=== PATIENT | female | born 1950 | race Caucasian/White ===

== ENCOUNTER → 2017-05-13 | Outpatient (CLI) | payer MEDICARE, OTHER ==
[~2017-05-13] MED LIST: ALBU90OI6 INH; ASPI325 PO; ASPI81CH; ATOR40TA PO; AZIT250 PO; Aspir 8181 MG PO; CEPH500 PO; CYCL10 PO; DIPH50 PO; DOCU100 PO; FLUT.05NI; GABA100; GLIP5 PO; HEPARIN LO IV; HYDACE10B PO; HYDACE7.5 PO; IBUP400 PO; IBUP600 PO; KETO10 PO; Kristalose20 GM PO; LISHYD2012 PO; LISHYD2025 PO; LOVA40 PO; METCAR500 PO; METF500 PO; METF500C PO; NAPR250 PO; OMEP20ER PO; OXYACE7.5T PO; PANT40 PO; PRED20 PO; PROCODE120 PO; PROM25 PO; Roxicodone5 MG PO; SULI150 PO; TRAM50 PO
== END ==
LOC: LAB 16:23
DX: L30.9 Dermatitis, unspecified (principal); L08.9 Local infection of the skin and subcutaneous tissue, unspecified
CPT/HCPCS: 87070; 87205; 87529

== ENCOUNTER → 2017-10-02 | Outpatient (CLI) | payer MEDICARE, OTHER ==
[2017-10-02 17:11] LABS: U Amphetamine Screen Not Detected; U Barbituate Screen Not Detected; U Benzodiazapine Screen Not Detected; U Buprenorphine Screen Not Detected; U Cannabinoids Screen Not Detected; U Cocaine Screen Not Detected; U Methadone Screen Not Detected; U Methamphetamine Screen Not Detected; U Opiates Screen DETECTED; U Oxycodone Screen Not Detected; U Phencyclidine Screen Not Detected; U Propoxyphene Screen Not Detected
== END | disposition home or self-care (01) ==
LOC: LAB 11:44 → LAB SHORT 11:44
PROVIDERS: Internal Medicine Hematology & Oncology
DX: Z51.81 Encounter for therapeutic drug level monitoring (principal); Z79.899 Other long term (current) drug therapy

== ENCOUNTER 2018-12-07 21:13 | Inpatient (IN) | payer MEDICARE, OTHER ==
[~2018-12-07] VITALS: Ht 107.9 cm; Wt 100.7 kg
[~2018-12-07 21:13] MED LIST changes: -GABA100; +GABA100 PO
[2018-12-07 21:45] LABS: BASOPHILS ABSOLUTE AUTO 0.08 K/mm3 (0.00-0.23); BASOPHILS PERCENT AUTO 1 % (0-2); EOSINOPHILS ABSOLUTE AUTO 0.13 K/mm3 (0.00-0.68); EOSINOPHILS PERCENT AUTO 1 % (0-6); Hematocrit 42.8 % (33.0-51.0); Hemoglobin 14.1 g/dL (11.5-16.0); IMMATURE GRAN ABSOLUTE AUTO 0.15 K/mm3 (0.00-0.10); IMMATURE GRAN PERCENT AUTO 1 % (0-1); LYMPHOCYTES ABSOLUTE AUTO 2.42 K/mm3 (0.84-5.20); LYMPHOCYTES PERCENT AUTO 15 % (21-46); MONOCYTES ABSOLUTE AUTO 0.71 K/mm3 (0.16-1.47); MONOCYTES PERCENT AUTO 4 % (4-13); Mean Corpuscular HGB Conc 32.9 g/dL (31.5-36.5); Mean Corpuscular Volume 88 fL (80-100); Mean Platelet Volume 10.4 fL (9.1-12.4); NEUTROPHILS PERCENT AUTO 79 % (41-73); Platelet Count 316 K/mm3 (150-400); RDW Coefficient Variation 13.8 % (11.7-14.2); RDW Standard Deviation 44.2 fL (35.1-46.3); Red Blood Cell Count 4.87 M/mm3 (3.80-5.20); White Blood Cell Count 16.39 K/mm3 (4.00-11.30)
[2018-12-07 22:04] LABS: Calcium, Blood 10.6 mg/dL (8.5-10.1); Creatinine, Blood 1.04 mg/dL (0.40-1.00); Potassium, Blood 4.2 mmol/L (3.5-5.5); Troponin I 0.071 ng/mL (0.000-0.040)
[2018-12-07] MEDS ORDERED: GLIP5 (23:26)
[2018-12-08 00:56] LABS: Albumin, Blood 4.2 g/dL (3.4-5.0)
--- NOTE | 2018-12-08 02:30 | NUR ---
PORT ACCESS FOR BLOOD CULTURES PORT ACCESSED PER PHYSICIAN REQUEST FOR BLOOD CULTURE SPECIMEN. HEPARIN LOCKED PER PROTOCOL AND SITE DEACCESSED.
[2018-12-08 02:49] LABS: BASOPHILS ABSOLUTE AUTO 0.06 K/mm3 (0.00-0.23); BASOPHILS PERCENT AUTO 0 % (0-2); EOSINOPHILS ABSOLUTE AUTO 0.05 K/mm3 (0.00-0.68); EOSINOPHILS PERCENT AUTO 0 % (0-6); Hematocrit 39.9 % (33.0-51.0); Hemoglobin 12.9 g/dL (11.5-16.0); IMMATURE GRAN ABSOLUTE AUTO 0.14 K/mm3 (0.00-0.10); IMMATURE GRAN PERCENT AUTO 1 % (0-1); LYMPHOCYTES ABSOLUTE AUTO 2.12 K/mm3 (0.84-5.20); LYMPHOCYTES PERCENT AUTO 13 % (21-46); MONOCYTES ABSOLUTE AUTO 0.79 K/mm3 (0.16-1.47); MONOCYTES PERCENT AUTO 5 % (4-13); Mean Corpuscular HGB 28.7 pg (26.0-34.0); Mean Corpuscular HGB Conc 32.3 g/dL (31.5-36.5); Mean Corpuscular Volume 89 fL (80-100); Mean Platelet Volume 10.4 fL (9.1-12.4); NEUTROPHILS ABSOLUTE AUTO 12.92 K/mm3 (1.96-9.15); NEUTROPHILS PERCENT AUTO 80 % (41-73); Platelet Count 269 K/mm3 (150-400); RDW Coefficient Variation 13.8 % (11.7-14.2); RDW Standard Deviation 44.6 fL (35.1-46.3); White Blood Cell Count 16.08 K/mm3 (4.00-11.30)
[2018-12-08 03:14] LABS: Source, Urine Clean Catch
[2018-12-08 03:16] LABS: Bilirubin, Urine Neg (Neg); Blood, Urine 1+ (Neg); Glucose Qualitative, Urine 1+ (Neg); Ketones, Urine 2+ (Neg); Leukocyte Esterase, Urine 1+ (Neg); Nitrite, Urine Neg (Neg); Protein, Urine 3+ (Neg); Specific Gravity, Urine 1.015 (1.003-1.022); Urobilinogen, Urine NORM (Normal)
[2018-12-08 03:18] LABS: Appearance, Urine Clear (Clear); Color, Urine Yellow (P-Yellow)
[2018-12-08 03:24] LABS: Bacteria Few /hpf; Red Blood Cells, Urine 0-2 /hpf (0-2); Squamous Epithelial Cells Rare /hpf (Few)
[2018-12-08 03:24] LABS: Albumin, Blood 3.9 g/dL (3.4-5.0); Bilirubin, Total 0.4 mg/dL (0.1-1.0); Calcium, Blood 9.8 mg/dL (8.5-10.1); Globulin, Blood 3.8 g/dL (2.2-4.0); Potassium, Blood 4.3 mmol/L (3.5-5.5); Total Protein, Blood 7.7 g/dL (6.4-8.2)
--- NOTE | 2018-12-08 06:26 | NUR ---
Arrival Pt arrived to PCU room 11 vis bed from ED with ED RN at bedside. Pt breathing easy and unlabored on RA at time of arrival, c/o 8/10 headache, denies chest pain, c/o 4/10 chest pressure. Pt states chest pressure has been constant and unchanging. Pt with NSR on tele. See admission assessment for detailed assessment. Will continue to monitor.
--- NOTE | 2018-12-08 06:30 | NUR ---
Shift Summary Pt with no acute changes this shift. after admission completed, pt sleeping undisturbed. VSS. No acute changes to tele. No further complaints of c/p or pressure. Headache resolved with ordered pain medications. Call light in reach, pt able to make needs known. Will continue to monitor and provide care until report off to day shift RN.
--- NOTE | 2018-12-08 08:34 | NUR ---
AM NOTE. ASSUMED CARE OF PT APROX 0700 PT IS A&Ox4 AND SBA/IND IN THE ROOM. PT WAS ADMITTED FOR HEAD ACHE AND HYPERTENSIVE URGENCY. PT DENIES HEADACHE AT THIS TIME. PT'S BP 144/76. NO EDEMA NOTED ON ASSESSMENT, PT HAS LYMPHEDEMA TO HER RUE. L/S CLEAR. BT PRESENT AND NORMOACTIVE, ABD IS SOFT NONTENDER TO PALP. PT IS IN NSR IN THE 80'S. WILL CONTINUE TO MONITOR.
--- NOTE | 2018-12-08 11:29 | NUR ---
echocardiogram complete
[2018-12-08 18:32] LABS: C-REACTIVE PROTEIN, EXT RANGE 0.977 mg/dL (0.000-0.300); Uric Acid, Blood 7.3 mg/dL (2.6-6.0)
--- NOTE | 2018-12-08 18:42 | NUR ---
SHIFT SUMMARY. NO ACUTE CHANGES NOTED THIS SHIFT. PT DENIES ANY CHEST PAIN/PRESSURE, N/V OR SOB. PT IS SCHEDULED TO HAVE CHE SCAN TOMORROW, PT IS TO BE NPO 4 HOURS PIOR TO SCAN, PT IS AWARE AND AGREEABLE TO THIS. PT HAS HAD VISTORS T/O THE DAY. PT'S VS STABLE, NO EVENTS NOTED ON TELE. CALL LIGHT IN REACH, WILL CONTINUE TO MONITOR UNTIL REPORT IS GIVEN TO ONCOMING RN.
[2018-12-08 19:38] LABS: Adenovirus Not Detected (NOT DETECT); Bordetella pertussis Not Detected (NOT DETECT); Chlamydophila pneumoniae Not Detected (NOT DETECT); Coronavirus 229E Not Detected (NOT DETECT); Coronavirus HKU1 Not Detected (NOT DETECT); Coronavirus NL63 Not Detected (NOT DETECT); Coronavirus OC43 Not Detected (NOT DETECT); Human Metapneumovirus Not Detected (NOT DETECT); Human Rhinovirus/Enterovirus Not Detected (NOT DETECT); Influenza A Not Detected (NOT DETECT); Influenza A/2009-H1 Not Detected (NOT DETECT); Influenza A/H1 Not Detected (NOT DETECT); Influenza A/H3 Not Detected (NOT DETECT); Influenza B Not Detected (NOT DETECT); Mycoplasma pneumoniae Not Detected (NOT DETECT); Parainfluenza Virus 1 Not Detected (NOT DETECT); Parainfluenza Virus 2 Not Detected (NOT DETECT); Parainfluenza Virus 3 Not Detected (NOT DETECT); Parainfluenza Virus 4 Not Detected (NOT DETECT); Respiratory Syncytial Virus Not Detected (NOT DETECT)
--- NOTE | 2018-12-08 22:56 | NUR ---
Assumed care of pt at appros 1900. Upon arrival, pt complaint of pain; medicated per orders. Pt denies chest pain, pressure, or SOB. Pt able to ambulate to bathroom with minimal assistance. Pt alert and oriented, follows directions, able to make needs known, uses call light appropriately. Pt to have stress test tomorrow, NPO per orders 4 hours prior to test. Pt aware and compliant with orders. See shift assessment for detailed assessment. Will continue to assess and provide care per orders
--- NOTE | 2018-12-09 00:21 | NUR ---
Report given to NATASHA Rhodes who assumes care.
[2018-12-09 04:12] LABS: BASOPHILS ABSOLUTE AUTO 0.08 K/mm3 (0.00-0.23); BASOPHILS PERCENT AUTO 1 % (0-2); EOSINOPHILS ABSOLUTE AUTO 0.38 K/mm3 (0.00-0.68); EOSINOPHILS PERCENT AUTO 3 % (0-6); Hematocrit 40.8 % (33.0-51.0); Hemoglobin 13.4 g/dL (11.5-16.0); IMMATURE GRAN ABSOLUTE AUTO 0.11 K/mm3 (0.00-0.10); IMMATURE GRAN PERCENT AUTO 1 % (0-1); LYMPHOCYTES PERCENT AUTO 26 % (21-46); MONOCYTES ABSOLUTE AUTO 1.05 K/mm3 (0.16-1.47); MONOCYTES PERCENT AUTO 8 % (4-13); Mean Corpuscular HGB 28.8 pg (26.0-34.0); Mean Corpuscular HGB Conc 32.8 g/dL (31.5-36.5); Mean Corpuscular Volume 88 fL (80-100); NEUTROPHILS ABSOLUTE AUTO 8.67 K/mm3 (1.96-9.15); NEUTROPHILS PERCENT AUTO 62 % (41-73); RDW Coefficient Variation 14.2 % (11.7-14.2); RDW Standard Deviation 44.8 fL (35.1-46.3); Red Blood Cell Count 4.65 M/mm3 (3.80-5.20); White Blood Cell Count 13.89 K/mm3 (4.00-11.30)
[2018-12-09 04:18] LABS: Mean Platelet Volume 10.5 fL (9.1-12.4); Platelet Count 247 K/mm3 (150-400)
[2018-12-09 04:34] LABS: Bun/Creatinine Ratio 20.5 (12.0-20.0); Calcium, Blood 9.6 mg/dL (8.5-10.1); Creatinine, Blood 1.17 mg/dL (0.40-1.00); Potassium, Blood 4.8 mmol/L (3.5-5.5)
--- NOTE | 2018-12-09 05:18 | NUR ---
SHIFT SUMMARY REPORT TAKEN ON PT FROM LISSA KAUR AT APPROX 0015. PT SLEEPING COMFORTABLY IN ROOM, SLEPT WELL T/O NIGHT. PT WOKE AT APPROX 0300 FOR PAIN MAEDS, BUT OTHERWISE DENIED NEEDS. DNIED ANY CP OR SOB. RESP EVEN UNLABORED ON RA W/ SATS >92%. PT INDEPENDENT IN ROOM TO RR. PT NPO OF 0400 FOR STRESS TEST THIS AM. PT COMPLIANT W/ CARE. DENIES OTHER NEEDS. CALL LIGHT IN REACH.
--- NOTE | 2018-12-09 07:45 | NUR ---
ASSUMED CARE OF PT THIS AM. PT. ALERT AND ORIENTED. INDEPENDENT IN ROOM. PT. ABLE TO EAT BREAFAST THIS AM, BUT WILL BE NPO AFTER FOR STRESS TEST. PT DENIES ANY CHEST PAIN OR PRESSURE THIS AM. PT. REPORTS CHRONIC PAIN THAT SHE TAKES NORCO Q4H FOR. VSS THIS AM. NADN. CALL LIGHT IN REACH.
--- NOTE | 2018-12-09 13:30 | NUR ---
PT REMAINS INDEPENDENT IN ROOM. FINISHED WITH INITAL PORTION OF STRESS TEST, SITTING UP EATING LUNCH. VSS. CALL LIGHT IN REACH.
--- NOTE | 2018-12-09 17:37 | NUR ---
SHIFT SUMMARY PT. REMAINS ALERT AND ORIENTED. NADN. INDEPENDENT IN ROOM T/O SHIFT. 2ND PORTION OF STRESS TOMORROW. CALL LIGHT IN REACH. NO ACUTE CHANGES T/O SHIFT. REPORT TO ONCOMING RN.
[2018-12-09 18:14] LABS: Source, Urine Catheter
[2018-12-09 18:24] LABS: Bilirubin, Urine Neg (Neg); Blood, Urine Neg (Neg); Glucose Qualitative, Urine Neg (Neg); Ketones, Urine Neg (Neg); Leukocyte Esterase, Urine 2+ (Neg); Nitrite, Urine Neg (Neg); Protein, Urine Neg (Neg); Urobilinogen, Urine NORM (Normal)
[2018-12-09 18:49] LABS: Appearance, Urine Clear (Clear); Color, Urine Yellow (P-Yellow)
[2018-12-09 18:50] LABS: Bacteria Rare /hpf; Red Blood Cells, Urine 0-2 /hpf (0-2); Squamous Epithelial Cells Mod /hpf (Few); White Blood Cells, Urine 0-2 /hpf (0-5)
--- NOTE | 2018-12-09 20:32 | NUR ---
Extenisve conversation with patient about her disease process and needs. Doctor Ribera has been managing most of her needs. 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 She expresses great stress at having a grandchild with cancer. We reviewed her care in detatil and her dosing of medications. She is supposed to take her neurontin TID but has missed the mid dosing. Reviewed the half life and dosing and how TID. She states medication works. Pt has strong anexiety componet. Review of diversiaon and switched the conversation to theraputic for her stress. Pt has sought treatment from [facility] for her pain and lympadema. will follow up with her for support and plan of care.
--- NOTE | 2018-12-09 21:22 | NUR ---
ASSUMED CARE OF PATIENT AT APPROXIMATELY 1905 FROM HEATHER [place] RN. PATIENT ALERT AND ORIENTED X4; INDEPENDENT IN ROOM TO BATHROOM. PATIENT REPORTS SHE KNOWS SHE IS FEELING BETTER BECAUSE SHE DOESNT WANT US TO DO ANYTHING FOR HER. PATIENT REPORTS CHRONIC PAIN THROUGHOUT HER BODY; REPORTS HEADACHE; BACK PAIN; RIGHT HIP PAIN; SHOULDER PAIN; MEDICATED PER EMAR; WENT FROM 8 TO 6; TOLERABLE FOR PATIENT. PATIENT REPORTS NUMBNESS IN TOES "FEELS LIKE SCALES ON MY TOES". PATIENT DENIES TINGLING, DIZZINESS AND NAUSEA. PATIENT HAD MEDIPORT; NOT ACCESSED; PIV S/L. FAMILY VISITED FOR A FEW MINUTES TONIGHT. PATIENT CURRENTLY RESTING IN BED; CALL LIGHT IN REACH; BED IN LOWEST POSISTION; WILL CONTINUE TO MONITOR AND ASSESS UNTIL END OF SHIFT.
--- NOTE | 2018-12-10 06:16 | NUR ---
NO ACUTE CHANGES TO REPORT. PATIENT SLEPT FOR ABOUT EIGHT HOURS. VSS. WILL CONTINUE TO MONITOR AND ASSESS UNTIL OF SHIFT. CALLED LAB ABOUT 0421 LABS STILL PENDING; CLOTTED; LAB WILL NEED TO REDRAW.
[2018-12-10 07:13] LABS: BASOPHILS ABSOLUTE AUTO 0.04 K/mm3 (0.00-0.23); BASOPHILS PERCENT AUTO 0 % (0-2); EOSINOPHILS ABSOLUTE AUTO 0.27 K/mm3 (0.00-0.68); EOSINOPHILS PERCENT AUTO 2 % (0-6); Hematocrit 38.4 % (33.0-51.0); Hemoglobin 12.2 g/dL (11.5-16.0); IMMATURE GRAN ABSOLUTE AUTO 0.11 K/mm3 (0.00-0.10); IMMATURE GRAN PERCENT AUTO 1 % (0-1); LYMPHOCYTES ABSOLUTE AUTO 3.02 K/mm3 (0.84-5.20); LYMPHOCYTES PERCENT AUTO 21 % (21-46); MONOCYTES ABSOLUTE AUTO 0.93 K/mm3 (0.16-1.47); MONOCYTES PERCENT AUTO 6 % (4-13); Mean Corpuscular HGB 28.7 pg (26.0-34.0); Mean Corpuscular HGB Conc 31.8 g/dL (31.5-36.5); Mean Corpuscular Volume 90 fL (80-100); Mean Platelet Volume 10.5 fL (9.1-12.4); NEUTROPHILS ABSOLUTE AUTO 10.18 K/mm3 (1.96-9.15); NEUTROPHILS PERCENT AUTO 70 % (41-73); Platelet Count 260 K/mm3 (150-400); RDW Standard Deviation 45.5 fL (35.1-46.3); Red Blood Cell Count 4.25 M/mm3 (3.80-5.20); White Blood Cell Count 14.55 K/mm3 (4.00-11.30)
--- NOTE | 2018-12-10 11:47 | NUR ---
Has been complaining of very dry mouth since yesterday evening. She thinks that it might be due to prednisone being started yesterday.
--- NOTE | 2018-12-10 14:53 | NUR ---
Anita complete: pt was given her lunch tray and a diet Pepsi for her headache.
--- NOTE | 2018-12-10 17:34 | NUR ---
Istrate called to inform him that the Lexiscan and myocardial perfusion study results have been read and are available.
[2018-12-10] MEDS ORDERED: Norco 10-325 T1 EACH PO (18:13)
[2018-12-10] MEDS ORDERED: ALLO100 PO (18:14)
[2018-12-10] MEDS ORDERED: MELA3 PO (18:15)
[2018-12-10] MEDS ORDERED: Lipitor20 MG PO (18:15)
[2018-12-10] MEDS ORDERED: ONDA4ODT MM (18:16)
[2018-12-10] MEDS ORDERED: NITR.4SL SL (18:16)
[2018-12-10] MEDS ORDERED: Lopressor 25 mg25 MG PO (18:16)
[2018-12-10] MEDS ORDERED: Prednisone10 MG PO (18:17)
== END 2018-12-10 18:48 | disposition home or self-care (01) | DRG 305 ==
LOC: ER 21:13 → PCU 21:14
PROVIDERS: Family Medicine; Nurse Practitioner Acute Care; Physician Assistant; ADMIT Hospitalist
DX: I16.0 Hypertensive urgency (principal); R65.10 Systemic inflammatory response syndrome (SIRS) of non-infectious origin without acute organ dysfunction; F11.20 Opioid dependence, uncomplicated; I24.8 Other forms of acute ischemic heart disease; E78.5 Hyperlipidemia, unspecified; K21.9 Gastro-esophageal reflux disease without esophagitis; G89.29 Other chronic pain; M54.9 Dorsalgia, unspecified; I35.0 Nonrheumatic aortic (valve) stenosis; N18.3 Chronic kidney disease, stage 3 (moderate); E83.52 Hypercalcemia; Z85.3 Personal history of malignant neoplasm of breast; Z85.528 Personal history of other malignant neoplasm of kidney; E78.00 Pure hypercholesterolemia, unspecified; E11.22 Type 2 diabetes mellitus with diabetic chronic kidney disease; E11.42 Type 2 diabetes mellitus with diabetic polyneuropathy; Z79.82 Long term (current) use of aspirin; Z79.84 Long term (current) use of oral hypoglycemic drugs; Z90.5 Acquired absence of kidney; I12.9 Hypertensive chronic kidney disease with stage 1 through stage 4 chronic kidney disease, or unspecified chronic kidney disease
CPT/HCPCS: 0099U; 36415; 70450; 71046; 78452; 80048; 80053; 81001; 82040; 82306; 82947; 83735; 83970; 84145; 84443; 84484; 84550; 85025; 85651; 86140; 87040; 87086; 93005; 93010; 93017; 93306; 96361; 96365; 96372; 96375; 96376; 99285-25; A9270-GY; A9500; G0378; J1642; J1650; J2405; J2785; J3475; J7030; J7512

== ENCOUNTER 2019-01-12 17:57 | Emergency (ER) | payer MEDICARE, OTHER ==
[~2019-01-12] VITALS: Ht 167.6 cm; Wt 102.1 kg
[~2019-01-12 17:57] MED LIST changes: +ALLO100 PO; +GLIP5; +Lipitor20 MG PO; +Lopressor 25 mg25 MG PO; +MELA3 PO; +NITR.4SL SL; +Norco 10-325 T1 EACH PO; +ONDA4ODT MM; +Prednisone10 MG PO
[2019-01-12 18:26] LABS: BASOPHILS ABSOLUTE AUTO 0.08 K/mm3 (0.00-0.23); BASOPHILS PERCENT AUTO 1 % (0-2); EOSINOPHILS ABSOLUTE AUTO 0.16 K/mm3 (0.00-0.68); EOSINOPHILS PERCENT AUTO 2 % (0-6); Hematocrit 40.7 % (33.0-51.0); Hemoglobin 13.1 g/dL (11.5-16.0); IMMATURE GRAN ABSOLUTE AUTO 0.06 K/mm3 (0.00-0.10); IMMATURE GRAN PERCENT AUTO 1 % (0-1); LYMPHOCYTES PERCENT AUTO 22 % (21-46); MONOCYTES ABSOLUTE AUTO 0.61 K/mm3 (0.16-1.47); MONOCYTES PERCENT AUTO 6 % (4-13); Mean Corpuscular HGB 29.4 pg (26.0-34.0); Mean Corpuscular HGB Conc 32.2 g/dL (31.5-36.5); Mean Corpuscular Volume 91 fL (80-100); Mean Platelet Volume 10.2 fL (9.1-12.4); NEUTROPHILS ABSOLUTE AUTO 7.32 K/mm3 (1.96-9.15); NEUTROPHILS PERCENT AUTO 70 % (41-73); Platelet Count 273 K/mm3 (150-400); RDW Coefficient Variation 13.6 % (11.7-14.2); RDW Standard Deviation 45.9 fL (35.1-46.3); Red Blood Cell Count 4.46 M/mm3 (3.80-5.20); White Blood Cell Count 10.53 K/mm3 (4.00-11.30)
[2019-01-12 18:45] LABS: Magnesium, Blood 1.7 mg/dL (1.6-2.4); Troponin I <0.015 ng/mL (0.000-0.040)
[2019-01-12 19:26] LABS: Alanine Aminotransfer (ALT/SGP 42 U/L (12-78); Albumin, Blood 3.7 g/dL (3.4-5.0); Alk Phos 58 U/L (50-136); Anion Gap 6 mmol/L (6-16); Aspartate Aminotrans (AST/SGOT 25 U/L (12-37); Bilirubin, Total 0.2 mg/dL (0.1-1.0); Blood Urea Nitrogen 20 mg/dL (8-24); Bun/Creatinine Ratio 18.2 (12.0-20.0); CO2, Blood 24 mmol/L (21-32); Calcium, Blood 9.3 mg/dL (8.5-10.1); Chloride, Blood 104 mmol/L (98-108); Globulin, Blood 3.8 g/dL (2.2-4.0); Glomerular Filtration Rate 53 (60-); Glucose, Blood 190 mg/dL (70-99); Potassium, Blood 4.6 mmol/L (3.5-5.5); Sodium, Blood 134 mmol/L (136-145); Total Protein, Blood 7.5 g/dL (6.4-8.2)
[2019-01-12 20:36] LABS: Source, Urine Clean Catch
[2019-01-12 20:41] LABS: Bilirubin, Urine Neg (Neg); Blood, Urine Neg (Neg); Glucose Qualitative, Urine 1+ (Neg); Ketones, Urine Neg (Neg); Leukocyte Esterase, Urine 2+ (Neg); Nitrite, Urine Neg (Neg); Protein, Urine Neg (Neg); Specific Gravity, Urine 1.005 (1.003-1.022); Urobilinogen, Urine NORM (Normal)
[2019-01-12 20:46] LABS: Appearance, Urine Clear (Clear); Color, Urine Pale Yellow (P-Yellow)
[2019-01-12 20:48] LABS: Bacteria Rare /hpf; Red Blood Cells, Urine 0-2 /hpf (0-2); Squamous Epithelial Cells Few /hpf (Few)
[2019-01-12 20:49] LABS: Transitional Epithelial Cells Few /hpf (0-Rare)
[2019-01-12] MEDS ORDERED: ALLO100 PO (21:58)
[2019-01-12] MEDS ORDERED: Lopressor 25 mg25 MG PO (21:58)
== END 2019-01-12 22:23 | disposition home or self-care (01) ==
LOC: ER 17:57
PROVIDERS: Physician Assistant
DX: I10 Essential (primary) hypertension (principal); Z88.0 Allergy status to penicillin; Z91.013 Allergy to seafood; Z88.5 Allergy status to narcotic agent; Z88.8 Allergy status to other drugs, medicaments and biological substances; Z79.899 Other long term (current) drug therapy; Z79.84 Long term (current) use of oral hypoglycemic drugs; Z79.82 Long term (current) use of aspirin; Z79.52 Long term (current) use of systemic steroids; Z85.3 Personal history of malignant neoplasm of breast; Z87.891 Personal history of nicotine dependence
CPT/HCPCS: 36415; 71046; 80053; 81001; 83735; 84484; 85025; 87086; 93005; 93010; 99284-25

== ENCOUNTER → 2019-11-09 | Outpatient (CLI) | payer MEDICARE, OTHER ==
[~2019-11-09] MED LIST changes: +PREG100 PO
[2019-11-09 13:05] LABS: Creatinine Urine 39.2 mg/dL (27.00-270.00); Microalbumin, Urine Quant. 5.31 mg/L (0.000-20.000); Protein, Urine Quantitative 6.5 mg/dL (0.0-11.9)
== END | disposition home or self-care (01) ==
LOC: LAB SHORT 11:26 → LAB 11:26 → LAB FUT 11-04 12:25
PROVIDERS: Internal Medicine Nephrology
DX: N18.3 Chronic kidney disease, stage 3 (moderate) (principal); D63.1 Anemia in chronic kidney disease; N25.81 Secondary hyperparathyroidism of renal origin; D50.9 Iron deficiency anemia, unspecified; E78.00 Pure hypercholesterolemia, unspecified; E55.9 Vitamin D deficiency, unspecified; D51.8 Other vitamin B12 deficiency anemias; D52.8 Other folate deficiency anemias; R76.9 Abnormal immunological finding in serum, unspecified; R94.5 Abnormal results of liver function studies; R94.6 Abnormal results of thyroid function studies
CPT/HCPCS: 81050; 82043; 82570; 84156

== ENCOUNTER → 2020-06-21 | Outpatient (CLI) | payer MEDICARE, OTHER ==
[~2020-06-21] MED LIST changes: +CALC.25 PO; +FURO40 PO; +LISI20 PO; +METO25 PO; +METO25ER PO; +OYSTER SHELL 51 EACH PO; +PREG200 PO; +ROPI.25 PO
[2020-06-21 19:45] LABS: U Amphetamine Screen Not Detected; U Barbituate Screen Not Detected; U Methamphetamine Screen Not Detected; U Opiates Screen DETECTED
[2020-06-21 19:46] LABS: U Benzodiazapine Screen Not Detected; U Buprenorphine Screen Not Detected; U Cannabinoids Screen Not Detected; U Cocaine Screen Not Detected; U Methadone Screen Not Detected; U Oxycodone Screen Not Detected; U Phencyclidine Screen Not Detected; U Propoxyphene Screen Not Detected
== END | disposition home or self-care (01) ==
LOC: LAB 18:32 → LAB SHORT 18:32
PROVIDERS: Internal Medicine Hematology & Oncology
DX: Z51.81 Encounter for therapeutic drug level monitoring (principal); Z79.899 Other long term (current) drug therapy

== ENCOUNTER 2020-07-29 17:35 | Emergency (ER) | payer MEDICARE, OTHER ==
[~2020-07-29] VITALS: Ht 165.1 cm; Wt 107.0 kg
[~2020-07-29 17:35] MED LIST changes: -CALC.25 PO; -FURO40 PO; -LISI20 PO; -METO25 PO; -METO25ER PO; -OYSTER SHELL 51 EACH PO; -PREG200 PO; -ROPI.25 PO
[2020-07-29 18:20] LABS: BASOPHILS ABSOLUTE AUTO 0.06 K/mm3 (0.00-0.23); BASOPHILS PERCENT AUTO 1 % (0-2); EOSINOPHILS ABSOLUTE AUTO 0.25 K/mm3 (0.00-0.68); EOSINOPHILS PERCENT AUTO 3 % (0-6); Hematocrit 38.2 % (33.0-51.0); Hemoglobin 12.3 g/dL (11.5-16.0); IMMATURE GRAN ABSOLUTE AUTO 0.06 K/mm3 (0.00-0.10); IMMATURE GRAN PERCENT AUTO 1 % (0-1); LYMPHOCYTES ABSOLUTE AUTO 2.57 K/mm3 (0.84-5.20); LYMPHOCYTES PERCENT AUTO 26 % (21-46); MONOCYTES ABSOLUTE AUTO 0.69 K/mm3 (0.16-1.47); MONOCYTES PERCENT AUTO 7 % (4-13); Mean Corpuscular HGB 27.2 pg (26.0-34.0); Mean Corpuscular HGB Conc 32.2 g/dL (31.5-36.5); Mean Corpuscular Volume 84 fL (80-100); Mean Platelet Volume 11.6 fL (9.1-12.4); NEUTROPHILS ABSOLUTE AUTO 6.34 K/mm3 (1.96-9.15); NEUTROPHILS PERCENT AUTO 64 % (41-73); Platelet Count 243 K/mm3 (150-400); RDW Coefficient Variation 15.8 % (11.7-14.2); RDW Standard Deviation 48.7 fL (35.1-46.3); Red Blood Cell Count 4.53 M/mm3 (3.80-5.20); White Blood Cell Count 9.97 K/mm3 (4.00-11.30)
[2020-07-29 18:42] LABS: Alanine Aminotransfer (ALT/SGP 38 U/L (12-78); Albumin, Blood 3.7 g/dL (3.4-5.0); Albumin/Globulin Ratio 0.9 (0.8-1.8); Alk Phos 57 U/L (50-136); Anion Gap 6 mmol/L (6-16); Aspartate Aminotrans (AST/SGOT 28 U/L (12-37); Bilirubin, Total 0.3 mg/dL (0.1-1.0); Blood Urea Nitrogen 75 mg/dL (8-24); Bun/Creatinine Ratio 27.7 (12.0-20.0); CO2, Blood 28 mmol/L (21-32); Calcium, Blood 9.1 mg/dL (8.5-10.1); Chloride, Blood 98 mmol/L (98-108); Creatinine, Blood 2.71 mg/dL (0.40-1.00); Glomerular Filtration Rate 19 (60-); Glucose, Blood 107 mg/dL (70-99); Potassium, Blood 5.1 mmol/L (3.5-5.5); Sodium, Blood 132 mmol/L (136-145); Total Protein, Blood 7.7 g/dL (6.4-8.2); Troponin I <0.015 ng/mL (0.000-0.040)
[2020-07-29] MEDS ORDERED: ROPI.25 PO (20:13)
[2020-07-29] MEDS ORDERED: PREG200 PO (20:14)
[2020-07-29] MEDS ORDERED: CALC.25 PO (20:15)
[2020-07-29] MEDS ORDERED: OYSTER SHELL 51 EACH PO (20:15)
[2020-07-29] MEDS ORDERED: FURO40 PO ×2 (20:17→20:18)
== END 2020-07-29 22:13 | disposition home or self-care (01) ==
LOC: ER 17:35
PROVIDERS: Physician Assistant
DX: N17.9 Acute kidney failure, unspecified (principal); Z79.84 Long term (current) use of oral hypoglycemic drugs; Z79.899 Other long term (current) drug therapy; Z88.0 Allergy status to penicillin; Z91.030 Bee allergy status; Z88.5 Allergy status to narcotic agent; Z79.82 Long term (current) use of aspirin
CPT/HCPCS: 36415; 70450; 71045; 72125; 80053; 84484; 85025; 93005; 93010; 99285-25; A9270; J7120

== ENCOUNTER 2020-09-26 06:44 | Day surgery (SDC) | payer MEDICARE, OTHER ==
[~2020-09-26] VITALS: Ht 162.6 cm; Wt 111.1 kg
[~2020-09-26 06:44] MED LIST changes: +CALC.25 PO; +FURO40 PO; +LISI20 PO; +METO25 PO; +OYSTER SHELL 51 EACH PO; +PREG200 PO; +ROPI.25 PO
--- NOTE | 2020-09-26 14:47 | NUR ---
VERBAL ORDER TO USE MEDIPORT IN LEFT CHESTWALL PER DR HENRIQUEZ.
--- NOTE | 2020-09-26 19:58 | NUR ---
SHIFT SUMMARY PT HAS DONE WELL POST OP. EATING, DRINKING, VOIDING. WORKED W/ THERAPY. UP TO CHAIR. PAIN WELL CONTROLLED W/ PO.
--- NOTE | 2020-09-27 04:13 | NUR ---
SHIFT SUMMARY: PT POD#1 FOR A LT TKA. PT A&OX4. VS WNL. AQUACEL DRESSING C/D/I WITH POLAR PACK IN PLACE. PAIN BEING MANAGED WITH NORCO PER EMAR. PT ALSO GIVEN ONE DOSE OF IV DILAUDID THIS MORNING FOR SEVERE 9/10 PAIN. PT NOW REPORTING PAIN 6/10 WHICH IS TOLERABLE. PT AMBULATING TO BATHROOM WITH 1 MINIMAL ASSIST AND FWW+GB. PT ABLE TO TAKE A SHORT WALK IN THE HALLWAY PRIOR TO BED. PLAN FOR PHYSICAL THERAPY TODAY AND POSSIBLE DISCHARGE HOME.
[2020-09-27 04:26] LABS: BASOPHILS ABSOLUTE AUTO 0.08 K/mm3 (0.00-0.23); BASOPHILS PERCENT AUTO 1 % (0-2); EOSINOPHILS ABSOLUTE AUTO 0.06 K/mm3 (0.00-0.68); EOSINOPHILS PERCENT AUTO 0 % (0-6); Hematocrit 31.2 % (33.0-51.0); Hemoglobin 10.1 g/dL (11.5-16.0); IMMATURE GRAN PERCENT AUTO 1 % (0-1); LYMPHOCYTES ABSOLUTE AUTO 1.96 K/mm3 (0.84-5.20); LYMPHOCYTES PERCENT AUTO 13 % (21-46); MONOCYTES ABSOLUTE AUTO 1.09 K/mm3 (0.16-1.47); MONOCYTES PERCENT AUTO 8 % (4-13); Mean Corpuscular HGB 27.8 pg (26.0-34.0); Mean Corpuscular HGB Conc 32.4 g/dL (31.5-36.5); Mean Corpuscular Volume 86 fL (80-100); Mean Platelet Volume 10.8 fL (9.1-12.4); NEUTROPHILS ABSOLUTE AUTO 11.21 K/mm3 (1.96-9.15); NEUTROPHILS PERCENT AUTO 77 % (41-73); NRBC ABSOLUTE 0.02 K/mm3 (0.00-0.02); NRBC Auto 0.1 /100 WBC (0.0-0.2); Platelet Count 194 K/mm3 (150-400); RDW Coefficient Variation 16.6 % (11.7-14.2); RDW Standard Deviation 51.6 fL (35.1-46.3); Red Blood Cell Count 3.63 M/mm3 (3.80-5.20)
[2020-09-27 04:44] LABS: Bun/Creatinine Ratio 21.7 (12.0-20.0); Calcium, Blood 8.5 mg/dL (8.5-10.1); Creatinine, Blood 1.61 mg/dL (0.40-1.00); Potassium, Blood 4.5 mmol/L (3.5-5.5)
[2020-09-27] MEDS ORDERED: Aspir 8181 MG PO (08:43)
[2020-09-27] MEDS ORDERED: HYDACE10B PO (08:44)
--- NOTE | 2020-09-27 19:40 | NUR ---
SHIFT SUMMARY PT HAS STRUGGLED W/ PAIN MANAGEMENT. SHE DISCUSSED THIS W/ MD THIS AM. WAS UNABLE TO CLEAR THERAPY. DOES WELL AMBULATING SLOWLY BUT PAINFUL. EATING, DRINKING, VOIDING. SHELLY RUGGIERO.
--- NOTE | 2020-09-28 04:16 | NUR ---
SHIFT SUMMARY NO ACUTE CHANGES. PT REPORTS L KNEE PAIN LEVEL AT 7-9/10 T/O SHIFT. PAIN MANAGED WITH 0.5 DILAUDID AND 2 TAB 10MG NORCO EVERY 4H. PT AMBULATING IN THE BATHROOM W/ 1 SBA, FAIR TOLERANCE. SHE WILL WORK WITH THERAPIST AGAIN TODAY. VSS. ALTHOUGH SHE WAS DESATING AT 83-90 AT SLEEP. PT STATES SHE SNORES AND WAS ADVISE TO HAVE A SLEEP STUDY A YEAR AGO BUT NEVER FOLLOW THROUGH. I PUT PATIENT ON 2L O2 AT NIGHT FOR SLEEP, SATURATING OVER 90%. TOLERATING PO INTAKE DENIES NAUSEA AND VOMITING. VOIDING ADEQUATELY WITHOUT ANY COMPLAINTS. CALL LIGHT WITHIN REACH. WILL PROVIDE REPORT TO ONCOMING NURSE.
--- NOTE | 2020-09-28 11:30 | NUR ---
DISCHARGE PT A/O X4. POD #2 L TKA. PT WORKED WITH PHYSICAL THERAPY TODAY AND CLEARED THERAPY. USING FWW WELL. REPORTS NO QUESTIONS OR CONCERNS, STATES SHE IS COMFORTABLE GOING HOME. FAMILY AT BEDSIDE WITH THERPAY SESSION, REPORTS NO QUESTIONS. OUTPATIENT THERAPY ALREADY LINED UP PER PT. DC INSTRUCTIONS GIVEN TO PT AND FAMILY, BOTH REPORT NO QUESTIONS OR CONCERNS. SCRIPTS, WRITTEN INSTRUCTIONS, POLAR PACK, AND PERSONAL BELONGINGS SENT WITH PT. [facility] DEACCESSED WNL. PT DC'D AT 1115. GIVEN WHEELCHAIR RIDE OUT TO VEHICLE.
== END 2020-09-28 11:53 | disposition home or self-care (01) ==
LOC: ORSCMMR 06:44 → ORD 09:45 → ORSCMMR 09:45 → ORD 10:15 → SURS 12:10 → ORSCMMR 09-28 11:53 → SURS 09-28 11:53
PROVIDERS: Orthopaedic Surgery
PROC: 0SRD0JA Replacement of Left Knee Joint with Synthetic Substitute, Uncemented, Open Approach (ICD-10-PCS; principal; 2020-09-26 08:00)
PROC: 8E0Y0CZ Robotic Assisted Procedure of Lower Extremity, Open Approach (ICD-10-PCS; principal; 2020-09-26 08:00)
DX: M17.12 Unilateral primary osteoarthritis, left knee (principal); E11.9 Type 2 diabetes mellitus without complications; I10 Essential (primary) hypertension; E66.01 Morbid (severe) obesity due to excess calories; Z68.41 Body mass index [BMI] 40.0-44.9, adult; Z79.84 Long term (current) use of oral hypoglycemic drugs; Z79.899 Other long term (current) drug therapy
CPT/HCPCS: 27447; S2900; 36415; 73560-LT; 80048; 82947; 85025; 97110; 97116; 97162; 97530; A9270; C1776; J0171; J0735; J1100; J1170; J1642; J1885; J2250; J2405; J2704; J2795; J3010; J7120

== ENCOUNTER 2020-10-06 15:32 | Emergency (ER) | payer MEDICARE, OTHER ==
[~2020-10-06] VITALS: Ht 162.6 cm; Wt 106.6 kg
[2020-10-06 16:08] LABS: BASOPHILS PERCENT AUTO 1 % (0-2); EOSINOPHILS ABSOLUTE AUTO 0.66 K/mm3 (0.00-0.68); EOSINOPHILS PERCENT AUTO 6 % (0-6); Hematocrit 35.5 % (33.0-51.0); Hemoglobin 11.3 g/dL (11.5-16.0); IMMATURE GRAN ABSOLUTE AUTO 0.21 K/mm3 (0.00-0.10); IMMATURE GRAN PERCENT AUTO 2 % (0-1); LYMPHOCYTES ABSOLUTE AUTO 2.58 K/mm3 (0.84-5.20); LYMPHOCYTES PERCENT AUTO 23 % (21-46); MONOCYTES ABSOLUTE AUTO 0.83 K/mm3 (0.16-1.47); MONOCYTES PERCENT AUTO 7 % (4-13); Mean Corpuscular HGB 27.6 pg (26.0-34.0); Mean Corpuscular HGB Conc 31.8 g/dL (31.5-36.5); Mean Corpuscular Volume 87 fL (80-100); Mean Platelet Volume 9.6 fL (9.1-12.4); NEUTROPHILS ABSOLUTE AUTO 6.99 K/mm3 (1.96-9.15); NEUTROPHILS PERCENT AUTO 62 % (41-73); Platelet Count 467 K/mm3 (150-400); RDW Coefficient Variation 16.2 % (11.7-14.2); RDW Standard Deviation 51.4 fL (35.1-46.3); Red Blood Cell Count 4.09 M/mm3 (3.80-5.20); White Blood Cell Count 11.37 K/mm3 (4.00-11.30)
[2020-10-06] MEDS ORDERED: METO25ER PO (16:11)
[2020-10-06 16:26] LABS: International Normalized Ratio 1.1; Prothrombin Time Results 11.8 Sec (9.7-11.5)
[2020-10-06 16:29] LABS: Alanine Aminotransfer (ALT/SGP 30 U/L (12-78); Albumin, Blood 3.5 g/dL (3.4-5.0); Albumin/Globulin Ratio 0.8 (0.8-1.8); Alk Phos 68 U/L (50-136); Anion Gap 8 mmol/L (6-16); Aspartate Aminotrans (AST/SGOT 21 U/L (12-37); Bilirubin, Total 0.2 mg/dL (0.1-1.0); Blood Urea Nitrogen 33 mg/dL (8-24); Bun/Creatinine Ratio 17.1 (12.0-20.0); CO2, Blood 25 mmol/L (21-32); Calcium, Blood 9.2 mg/dL (8.5-10.1); Chloride, Blood 101 mmol/L (98-108); Creatinine, Blood 1.93 mg/dL (0.40-1.00); Globulin, Blood 4.3 g/dL (2.2-4.0); Glomerular Filtration Rate 27 (60-); Glucose, Blood 132 mg/dL (70-99); Potassium, Blood 4.7 mmol/L (3.5-5.5); Sodium, Blood 134 mmol/L (136-145); Total Protein, Blood 7.8 g/dL (6.4-8.2); Troponin I <0.015 ng/mL (0.000-0.040)
== END 2020-10-06 18:46 | disposition home or self-care (01) ==
LOC: ER 15:32
PROVIDERS: Physician Assistant
DX: I95.9 Hypotension, unspecified (principal); R06.02 Shortness of breath; K21.9 Gastro-esophageal reflux disease without esophagitis; E11.40 Type 2 diabetes mellitus with diabetic neuropathy, unspecified; Z79.84 Long term (current) use of oral hypoglycemic drugs; Z79.899 Other long term (current) drug therapy; Z79.82 Long term (current) use of aspirin; Z88.0 Allergy status to penicillin; Z88.5 Allergy status to narcotic agent; Z91.030 Bee allergy status
CPT/HCPCS: 36415; 71260; 80053; 83880; 84484; 85025; 85610; 85730; 93005; 93010; 96360; 96361; 99285-25; J7030; Q9967

== ENCOUNTER 2020-12-13 21:32 | Emergency (ER) | payer MEDICARE, OTHER ==
[~2020-12-13] VITALS: Ht 170.2 cm; Wt 127.0 kg
[~2020-12-13 21:32] MED LIST changes: +METO25ER PO
[2020-12-13 22:30] LABS: BASOPHILS ABSOLUTE AUTO 0.01 K/mm3 (0.00-0.23); BASOPHILS PERCENT AUTO 0 % (0-2); EOSINOPHILS PERCENT AUTO 0 % (0-6); Hematocrit 39.4 % (33.0-51.0); Hemoglobin 12.3 g/dL (11.5-16.0); IMMATURE GRAN ABSOLUTE AUTO 0.06 K/mm3 (0.00-0.10); IMMATURE GRAN PERCENT AUTO 1 % (0-1); LYMPHOCYTES ABSOLUTE AUTO 0.52 K/mm3 (0.84-5.20); LYMPHOCYTES PERCENT AUTO 7 % (21-46); MONOCYTES ABSOLUTE AUTO 0.49 K/mm3 (0.16-1.47); MONOCYTES PERCENT AUTO 7 % (4-13); Mean Corpuscular HGB 26.6 pg (26.0-34.0); Mean Corpuscular HGB Conc 31.2 g/dL (31.5-36.5); Mean Corpuscular Volume 85 fL (80-100); Mean Platelet Volume 10.7 fL (9.1-12.4); NEUTROPHILS ABSOLUTE AUTO 6.09 K/mm3 (1.96-9.15); NEUTROPHILS PERCENT AUTO 85 % (41-73); Platelet Count 162 K/mm3 (150-400); RDW Coefficient Variation 15.2 % (11.7-14.2); RDW Standard Deviation 47.7 fL (35.1-46.3); Red Blood Cell Count 4.63 M/mm3 (3.80-5.20); White Blood Cell Count 7.17 K/mm3 (4.00-11.30)
[2020-12-13 22:48] LABS: Albumin, Blood 3.1 g/dL (3.4-5.0); Albumin/Globulin Ratio 0.7 (0.8-1.8); Bilirubin, Total 0.3 mg/dL (0.1-1.0); Bun/Creatinine Ratio 20.3 (12.0-20.0); Calcium, Blood 8.6 mg/dL (8.5-10.1); Creatinine, Blood 1.33 mg/dL (0.40-1.00); Globulin, Blood 4.2 g/dL (2.2-4.0); Potassium, Blood 4.8 mmol/L (3.5-5.5); Total Protein, Blood 7.3 g/dL (6.4-8.2)
[2020-12-13 23:05] LABS: Source, Urine Voided
[2020-12-13 23:07] LABS: Bilirubin, Urine Neg (Neg); Blood, Urine 4+ (Neg); Glucose Qualitative, Urine Neg (Neg); Ketones, Urine 2+ (Neg); Leukocyte Esterase, Urine Neg (Neg); Nitrite, Urine Neg (Neg); Protein, Urine 3+ (Neg); Urobilinogen, Urine NORM (Normal)
[2020-12-13 23:08] LABS: Appearance, Urine Clear (Clear); Color, Urine Yellow (P-Yellow)
[2020-12-13 23:13] LABS: Bacteria Rare /hpf; Squamous Epithelial Cells Few /hpf (Few); White Blood Cells, Urine Not Seen /hpf (0-5)
== END 2020-12-14 01:30 | disposition home or self-care (01) ==
LOC: ER 21:32
PROVIDERS: Emergency Medicine; Student in an Organized Health Care Education/Training Program
DX: U07.1 COVID-19 (principal); I10 Essential (primary) hypertension; K21.9 Gastro-esophageal reflux disease without esophagitis; E11.9 Type 2 diabetes mellitus without complications; J45.909 Unspecified asthma, uncomplicated; Z88.0 Allergy status to penicillin; Z88.5 Allergy status to narcotic agent; Z79.899 Other long term (current) drug therapy; Z79.84 Long term (current) use of oral hypoglycemic drugs; Z91.038 Other insect allergy status; Z79.82 Long term (current) use of aspirin; Z85.3 Personal history of malignant neoplasm of breast; Z85.528 Personal history of other malignant neoplasm of kidney
CPT/HCPCS: 36415; 71045; 80053; 81001; 85025; 93005; 93010; 99284-25; A9270; J7030; P9612

== ENCOUNTER 2020-12-16 20:41 | Inpatient (IN) | payer MEDICARE, OTHER ==
[~2020-12-16] VITALS: Ht 165.1 cm; Wt 108.1 kg
[2020-12-16 21:15] LABS: BASOPHILS PERCENT AUTO 0 % (0-2); EOSINOPHILS PERCENT AUTO 0 % (0-6); Hematocrit 38.1 % (33.0-51.0); Hemoglobin 11.9 g/dL (11.5-16.0); IMMATURE GRAN ABSOLUTE AUTO 0.02 K/mm3 (0.00-0.10); IMMATURE GRAN PERCENT AUTO 1 % (0-1); LYMPHOCYTES ABSOLUTE AUTO 0.26 K/mm3 (0.84-5.20); LYMPHOCYTES PERCENT AUTO 6 % (21-46); MONOCYTES ABSOLUTE AUTO 0.22 K/mm3 (0.16-1.47); MONOCYTES PERCENT AUTO 5 % (4-13); Mean Corpuscular HGB 26.3 pg (26.0-34.0); Mean Corpuscular HGB Conc 31.2 g/dL (31.5-36.5); Mean Corpuscular Volume 84 fL (80-100); Mean Platelet Volume 9.9 fL (9.1-12.4); NEUTROPHILS ABSOLUTE AUTO 3.93 K/mm3 (1.96-9.15); NEUTROPHILS PERCENT AUTO 89 % (41-73); Platelet Count 186 K/mm3 (150-400); RDW Standard Deviation 46.1 fL (35.1-46.3); Red Blood Cell Count 4.52 M/mm3 (3.80-5.20); White Blood Cell Count 4.43 K/mm3 (4.00-11.30)
[2020-12-16 21:36] LABS: Alanine Aminotransfer (ALT/SGP 39 U/L (12-78); Albumin, Blood 2.7 g/dL (3.4-5.0); Albumin/Globulin Ratio 0.6 (0.8-1.8); Alk Phos 48 U/L (50-136); Anion Gap 9 mmol/L (6-16); Aspartate Aminotrans (AST/SGOT 50 U/L (12-37); Bilirubin, Total 0.2 mg/dL (0.1-1.0); Blood Urea Nitrogen 37 mg/dL (8-24); Bun/Creatinine Ratio 22.8 (12.0-20.0); CO2, Blood 20 mmol/L (21-32); Chloride, Blood 102 mmol/L (98-108); Creatinine, Blood 1.62 mg/dL (0.40-1.00); Globulin, Blood 4.2 g/dL (2.2-4.0); Glomerular Filtration Rate 32 (60-); Glucose, Blood 147 mg/dL (70-99); Potassium, Blood 4.3 mmol/L (3.5-5.5); Sodium, Blood 131 mmol/L (136-145); Total Protein, Blood 6.9 g/dL (6.4-8.2); Troponin I <0.015 ng/mL (0.000-0.040)
[2020-12-17 06:49] LABS: Hematocrit 36.9 % (33.0-51.0); Hemoglobin 11.6 g/dL (11.5-16.0); Mean Corpuscular HGB 26.7 pg (26.0-34.0); Mean Corpuscular HGB Conc 31.4 g/dL (31.5-36.5); Mean Corpuscular Volume 85 fL (80-100); Mean Platelet Volume 9.8 fL (9.1-12.4); Platelet Count 175 K/mm3 (150-400); RDW Coefficient Variation 14.9 % (11.7-14.2); RDW Standard Deviation 46.2 fL (35.1-46.3); Red Blood Cell Count 4.35 M/mm3 (3.80-5.20); White Blood Cell Count 4.45 K/mm3 (4.00-11.30)
[2020-12-17 07:13] LABS: Albumin, Blood 2.6 g/dL (3.4-5.0); Albumin/Globulin Ratio 0.6 (0.8-1.8); Bilirubin, Total 0.2 mg/dL (0.1-1.0); Bun/Creatinine Ratio 20.6 (12.0-20.0); Creatinine, Blood 1.7 mg/dL (0.40-1.00); Globulin, Blood 4.2 g/dL (2.2-4.0); Potassium, Blood 5.1 mmol/L (3.5-5.5); Total Protein, Blood 6.8 g/dL (6.4-8.2)
[2020-12-17 08:17] LABS: BAND PERCENT MAN 4 % (0-8); BASOPHILS PERCENT MAN 0 % (0-2); EOSINOPHILS PERCENT MAN 0 % (0-6); LYMPHOCYTES ABSOLUTE MAN 0.17 K/mm3 (0.84-5.20); LYMPHOCYTES PERCENT MAN 4 % (21-46); MONOCYTES ABSOLUTE MAN 0.13 K/mm3 (0.16-1.47); MONOCYTES PERCENT MAN 3 % (4-13); MYELOCYTE ABSOLUTE MAN 0.04 K/mm3 (0.00-0.00); MYELOCYTE PERCENT MAN 1 % (0-0); NEUTROPHILS ABSOLUTE MAN 4.09 K/mm3 (1.96-9.15); SEG NEUTROPHILS PERCENT MAN 88 % (41-73); TOTAL CELLS COUNTED 100
--- NOTE | 2020-12-17 17:26 | NUR ---
SHIFT SUMMARY ED ADMIT THIS AFTERNOON. PATIENT SETTLED INTO ROOM. PATIENT MAINTAINING OXYGEN SATURATION ABOVE 92% ON 10L/XYMIZER. UP SBA TO BSC. MEDIPORT ACCEDD IN ED. PATIENT DENIES NAUSEA, MEDICATED X1 FOR PAIN IN ED. DENIES PAIN AT THIS TIME.
[2020-12-18 05:59] LABS: Hematocrit 39.3 % (33.0-51.0); Hemoglobin 12.3 g/dL (11.5-16.0); Mean Corpuscular HGB 26.3 pg (26.0-34.0); Mean Corpuscular HGB Conc 31.3 g/dL (31.5-36.5); Mean Corpuscular Volume 84 fL (80-100); Mean Platelet Volume 10.1 fL (9.1-12.4); Platelet Count 216 K/mm3 (150-400); RDW Coefficient Variation 14.9 % (11.7-14.2); RDW Standard Deviation 46.1 fL (35.1-46.3); Red Blood Cell Count 4.67 M/mm3 (3.80-5.20); White Blood Cell Count 4.64 K/mm3 (4.00-11.30)
[2020-12-18 06:29] LABS: Albumin, Blood 2.6 g/dL (3.4-5.0); Anion Gap 9 mmol/L (6-16); Blood Urea Nitrogen 35 mg/dL (8-24); Bun/Creatinine Ratio 25.9 (12.0-20.0); CO2, Blood 19 mmol/L (21-32); Chloride, Blood 108 mmol/L (98-108); Creatinine, Blood 1.35 mg/dL (0.40-1.00); Glomerular Filtration Rate 39 (60-); Glucose, Blood 140 mg/dL (70-99); Phosphorus, Blood 2.9 mg/dL (2.5-4.9); Potassium, Blood 4.9 mmol/L (3.5-5.5); Sodium, Blood 136 mmol/L (136-145)
[2020-12-18 11:26] LABS: Source, Urine Clean Catch
[2020-12-18 11:52] LABS: Bilirubin, Urine Neg (Neg); Blood, Urine 2+ (Neg); Glucose Qualitative, Urine 2+ (Neg); Ketones, Urine Neg (Neg); Leukocyte Esterase, Urine 1+ (Neg); Nitrite, Urine Neg (Neg); Protein, Urine 2+ (Neg); Urobilinogen, Urine NORM (Normal)
[2020-12-18 11:54] LABS: Appearance, Urine Clear (Clear); Color, Urine Yellow (P-Yellow)
[2020-12-18 11:55] LABS: Bacteria Many /hpf; Squamous Epithelial Cells Rare /hpf (Few); Transitional Epithelial Cells Few /hpf (0-Rare)
[2020-12-19 05:45] LABS: BASOPHILS ABSOLUTE AUTO 0.01 K/mm3 (0.00-0.23); BASOPHILS PERCENT AUTO 0 % (0-2); EOSINOPHILS PERCENT AUTO 0 % (0-6); Hematocrit 39.6 % (33.0-51.0); Hemoglobin 12.5 g/dL (11.5-16.0); IMMATURE GRAN ABSOLUTE AUTO 0.05 K/mm3 (0.00-0.10); IMMATURE GRAN PERCENT AUTO 1 % (0-1); LYMPHOCYTES PERCENT AUTO 10 % (21-46); MONOCYTES ABSOLUTE AUTO 0.39 K/mm3 (0.16-1.47); MONOCYTES PERCENT AUTO 9 % (4-13); Mean Corpuscular HGB 26.6 pg (26.0-34.0); Mean Corpuscular HGB Conc 31.6 g/dL (31.5-36.5); Mean Corpuscular Volume 84 fL (80-100); Mean Platelet Volume 9.8 fL (9.1-12.4); NEUTROPHILS ABSOLUTE AUTO 3.35 K/mm3 (1.96-9.15); NEUTROPHILS PERCENT AUTO 80 % (41-73); Platelet Count 259 K/mm3 (150-400); RDW Coefficient Variation 14.8 % (11.7-14.2); RDW Standard Deviation 45.5 fL (35.1-46.3)
[2020-12-19 06:09] LABS: Albumin, Blood 2.5 g/dL (3.4-5.0); Albumin/Globulin Ratio 0.6 (0.8-1.8); Bilirubin, Total 0.2 mg/dL (0.1-1.0); Bun/Creatinine Ratio 29.6 (12.0-20.0); C-REACTIVE PROTEIN, EXT RANGE 9.16 mg/dL (0.000-0.300); Calcium, Blood 8.3 mg/dL (8.5-10.1); Creatinine, Blood 1.42 mg/dL (0.40-1.00); Globulin, Blood 4.4 g/dL (2.2-4.0); Magnesium, Blood 1.7 mg/dL (1.6-2.4); Potassium, Blood 5.4 mmol/L (3.5-5.5); Thyroid Stimulating Hormone 0.204 uIU/mL (0.360-4.800); Total Protein, Blood 6.9 g/dL (6.4-8.2)
--- NOTE | 2020-12-19 10:41 | NUR ---
11 BEATS OF ELEVATED TACHYCARDIA, POSSIBLY SVT OR VT, AT 0948. DR. FUNES NOTIFIED BY TELEPHONE @ 9565. ORDERS RECIEVED.
--- NOTE | 2020-12-19 13:06 | NUR ---
ASSISTED PT TO BSC. ALSO CHANGED GOWN AND STRAIGHTENED BEDDING
--- NOTE | 2020-12-20 03:48 | NUR ---
70 YEAR OLD pt WITH COVID 19 & HX OF CANCER IN REMISSION X 7 YEARS? CONTINUES TO REQUIRE OXYGEN 6 TO 10 L OXYMIZER TO MAINTAIN SATS AT 90% OR GREATER. DOES DESAT TO 82 WITH ACTIVITY & SLOW RECOVERY. SHE APPEARS OLDER THAN ACTUAL AGE. dIABETIC WITH BGS LESS THAN 250. . IN SPECIAL DROPLET CONTACT ISOLATION FOR COVID 19.
[2020-12-20 06:13] LABS: BASOPHILS ABSOLUTE AUTO 0.01 K/mm3 (0.00-0.23); BASOPHILS PERCENT AUTO 0 % (0-2); EOSINOPHILS PERCENT AUTO 0 % (0-6); Hematocrit 38.6 % (33.0-51.0); Hemoglobin 12.3 g/dL (11.5-16.0); IMMATURE GRAN ABSOLUTE AUTO 0.08 K/mm3 (0.00-0.10); IMMATURE GRAN PERCENT AUTO 2 % (0-1); LYMPHOCYTES ABSOLUTE AUTO 0.44 K/mm3 (0.84-5.20); LYMPHOCYTES PERCENT AUTO 10 % (21-46); MONOCYTES ABSOLUTE AUTO 0.37 K/mm3 (0.16-1.47); MONOCYTES PERCENT AUTO 8 % (4-13); Mean Corpuscular HGB 26.5 pg (26.0-34.0); Mean Corpuscular HGB Conc 31.9 g/dL (31.5-36.5); Mean Corpuscular Volume 83 fL (80-100); Mean Platelet Volume 9.9 fL (9.1-12.4); NEUTROPHILS ABSOLUTE AUTO 3.55 K/mm3 (1.96-9.15); NEUTROPHILS PERCENT AUTO 80 % (41-73); Platelet Count 292 K/mm3 (150-400); RDW Coefficient Variation 14.9 % (11.7-14.2); RDW Standard Deviation 45.4 fL (35.1-46.3); Red Blood Cell Count 4.65 M/mm3 (3.80-5.20); White Blood Cell Count 4.45 K/mm3 (4.00-11.30)
[2020-12-20 06:24] LABS: International Normalized Ratio 1.06; Prothrombin Time Results 11.4 Sec (9.7-11.5)
[2020-12-20 06:34] LABS: Bun/Creatinine Ratio 34.2 (12.0-20.0); C-REACTIVE PROTEIN, EXT RANGE 6.3 mg/dL (0.000-0.300); Calcium, Blood 8.8 mg/dL (8.5-10.1); Creatinine, Blood 1.46 mg/dL (0.40-1.00); Potassium, Blood 5.5 mmol/L (3.5-5.5)
--- NOTE | 2020-12-20 08:54 | NUR ---
PT TRANSFERRED TO BSC. DESATTED TO HIGH 70'S, O2 WAS AT 7L OXIMIZER. IMMED TURNED O2 TO 15 L OXIMIZER. PT RECOVERED SLOWLY OVER ABOUT 3 MIN. GRADUALLY TURNING DOWN FLOW AGAIN. NOW AT 10 L AND MAINTAINING SATS > 90%. NOTIFIYING PT NURSE OF STATUS
--- NOTE | 2020-12-20 21:23 | NUR ---
02 increased to 15 liters. RT in room to place non rebreather. Saturations in 70's prior to plcement of non rebreather. Just rechecked with RT, and 02 still in low 80's. RT bringing AIRVO to patient to increase oxygenation. will continue close monitoring
--- NOTE | 2020-12-21 03:14 | NUR ---
70 year old female with covid 19 continues in special droplet contact isolation & continues hypoxic with need to start airvo to get sats greater than 90%. She is weak & hypoxic with activity. Up to bedside commode with moderate assist due to cords lines tele weakness & hypoxia. She is on [employer] & she does remove oxygen at times. Urine cloudy. Chronic pain relieved by norco 5/325 two.
[2020-12-21 04:51] LABS: BASOPHILS ABSOLUTE AUTO 0.02 K/mm3 (0.00-0.23); BASOPHILS PERCENT AUTO 0 % (0-2); EOSINOPHILS PERCENT AUTO 0 % (0-6); Hematocrit 37.7 % (33.0-51.0); IMMATURE GRAN ABSOLUTE AUTO 0.13 K/mm3 (0.00-0.10); IMMATURE GRAN PERCENT AUTO 2 % (0-1); LYMPHOCYTES ABSOLUTE AUTO 0.54 K/mm3 (0.84-5.20); LYMPHOCYTES PERCENT AUTO 9 % (21-46); MONOCYTES PERCENT AUTO 7 % (4-13); Mean Corpuscular HGB 26.1 pg (26.0-34.0); Mean Corpuscular HGB Conc 31.8 g/dL (31.5-36.5); Mean Corpuscular Volume 82 fL (80-100); Mean Platelet Volume 9.7 fL (9.1-12.4); NEUTROPHILS ABSOLUTE AUTO 4.68 K/mm3 (1.96-9.15); NEUTROPHILS PERCENT AUTO 81 % (41-73); Platelet Count 312 K/mm3 (150-400); RDW Coefficient Variation 14.8 % (11.7-14.2); RDW Standard Deviation 44.4 fL (35.1-46.3); Red Blood Cell Count 4.59 M/mm3 (3.80-5.20); White Blood Cell Count 5.77 K/mm3 (4.00-11.30)
[2020-12-21 05:06] LABS: International Normalized Ratio 1.11; Prothrombin Time Results 11.9 Sec (9.7-11.5)
[2020-12-21 05:12] LABS: Albumin, Blood 2.5 g/dL (3.4-5.0); Albumin/Globulin Ratio 0.6 (0.8-1.8); Bilirubin, Total 0.3 mg/dL (0.1-1.0); Bun/Creatinine Ratio 40.9 (12.0-20.0); C-REACTIVE PROTEIN, EXT RANGE 3.2 mg/dL (0.000-0.300); Calcium, Blood 8.4 mg/dL (8.5-10.1); Creatinine, Blood 1.54 mg/dL (0.40-1.00); Globulin, Blood 4.1 g/dL (2.2-4.0); Potassium, Blood 5.3 mmol/L (3.5-5.5); Total Protein, Blood 6.6 g/dL (6.4-8.2)
--- NOTE | 2020-12-21 15:57 | NUR ---
PT IS A/OX4, PLEASANT AND COOPERATIVE. THE PT IS UP WITH ASSIST TO THE CHAIR AND THE BSC. THE PT DESAT'S WITH MINIMAL ACTIVITY. THE PT IS CURRENTLY ON AIRVO NOT TOLERATING WELL, HOWEVER, IS COMPLIANT WITH WEARING IT. THE RESPIRATORY THERAPIST SPOKE WITH THE PT REGARDING OTHER OPTIONS AND AT THIS TIME THERE IS NO BETTER OPTION. CALL LIGHT IN REACH WILL CONTINUE TO MONITOR AND ASSESS FOR CHANGES
--- NOTE | 2020-12-22 18:34 | NUR ---
PT RESTING IN BED MAKING NO COMPLAINTS OF PAIN OR SOB AT THIS TIME. REMIANS ALERT AND ORIENTED X4. STARTED SHIFT NON-COMPLIANT OR LACKING MOTIVATION TO TURN, TAKE MEDS OR COMPLY WITH ASSESSMENT. WITH 2 PERSON ASSIST TASKS WERE COMPLETE. SATS DROPPED INTO HIGH 70'S TO MID 80'S A FEW TIMES. TURNED PT ON HER SIDES AND ENCOURAGED NOSE BREATHING. SATS HAVE BEEN 90 AND ABOVE FOR REST OF SHIFT. PT IS MORE ALERT, SPEAKING WITH FAMILY ON PHONE, UP TO AND FROM CAMODE MULTIPLE TIMES. PT AWARE OF DAYS OCCURANCES AND WAS VERY HELPFUL.
[2020-12-23 05:31] LABS: BASOPHILS ABSOLUTE AUTO 0.04 K/mm3 (0.00-0.23); BASOPHILS PERCENT AUTO 0 % (0-2); EOSINOPHILS ABSOLUTE AUTO 0.01 K/mm3 (0.00-0.68); EOSINOPHILS PERCENT AUTO 0 % (0-6); Hematocrit 41.9 % (33.0-51.0); Hemoglobin 13.5 g/dL (11.5-16.0); IMMATURE GRAN ABSOLUTE AUTO 0.61 K/mm3 (0.00-0.10); IMMATURE GRAN PERCENT AUTO 6 % (0-1); LYMPHOCYTES ABSOLUTE AUTO 0.69 K/mm3 (0.84-5.20); LYMPHOCYTES PERCENT AUTO 7 % (21-46); MONOCYTES ABSOLUTE AUTO 0.44 K/mm3 (0.16-1.47); MONOCYTES PERCENT AUTO 4 % (4-13); Mean Corpuscular HGB 26.5 pg (26.0-34.0); Mean Corpuscular HGB Conc 32.2 g/dL (31.5-36.5); Mean Corpuscular Volume 82 fL (80-100); Mean Platelet Volume 10.3 fL (9.1-12.4); NEUTROPHILS ABSOLUTE AUTO 8.88 K/mm3 (1.96-9.15); NEUTROPHILS PERCENT AUTO 83 % (41-73); NRBC ABSOLUTE 0.02 K/mm3 (0.00-0.02); NRBC Auto 0.2 /100 WBC (0.0-0.2); Platelet Count 354 K/mm3 (150-400); RDW Coefficient Variation 14.6 % (11.7-14.2); RDW Standard Deviation 43.9 fL (35.1-46.3); Red Blood Cell Count 5.09 M/mm3 (3.80-5.20); White Blood Cell Count 10.67 K/mm3 (4.00-11.30)
--- NOTE | 2020-12-23 06:28 | NUR ---
SHIFT SUMMARY - NO ACUTE CHANGES THROUGHOUT THIS SHIFT. PT'S SATS TO LOW 80'S AFTER AMBULATION TO BRP - BUT RECOVERED ONCE PT IS BACK INTO BED AND PT DEEP BREATHS. PT REMAINED ON AIRVO 60L, 15L NRB MASK THROUGHOUT THE NIGHT. PT WAS ABLE TO ASSIST WITH TURNING FROM SIDE TO SIDE THROUGHOUT THE NIGHT. 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 FLUIDS AT BEDSIDE. CALL LIGHT WITHIN REACH. BED IN LOW POSITION.
[2020-12-23 06:57] LABS: Albumin, Blood 2.5 g/dL (3.4-5.0); Albumin/Globulin Ratio 0.6 (0.8-1.8); Bilirubin, Total 0.5 mg/dL (0.1-1.0); Bun/Creatinine Ratio 47.8 (12.0-20.0); C-REACTIVE PROTEIN, EXT RANGE 10.8 mg/dL (0.000-0.300); Calcium, Blood 8.8 mg/dL (8.5-10.1); Creatinine, Blood 1.8 mg/dL (0.40-1.00); Globulin, Blood 4.3 g/dL (2.2-4.0); Magnesium, Blood 1.8 mg/dL (1.6-2.4); Potassium, Blood 5.2 mmol/L (3.5-5.5); Total Protein, Blood 6.8 g/dL (6.4-8.2)
[2020-12-24 06:22] LABS: Bun/Creatinine Ratio 50.9 (12.0-20.0); Calcium, Blood 8.4 mg/dL (8.5-10.1); Creatinine, Blood 1.67 mg/dL (0.40-1.00); Magnesium, Blood 2.1 mg/dL (1.6-2.4); Phosphorus, Blood 4.3 mg/dL (2.5-4.9); Potassium, Blood 5.2 mmol/L (3.5-5.5)
--- NOTE | 2020-12-24 07:26 | NUR ---
PT CONTINUES TO TAKE OFF/ PLAY WITH HER BIPAP BY OPENING VALVES AND DISCONECTING TUBES. ALARMS SOUND AND STAFF ASSISTS. PT DOES BEBOUND FAST AND WELL TO 90 AND ABOVE. PT ALSO CALS STAFF Q15 MIN TO HELP MOISTEN HER MOUTH. PT WAS TREATED WITH PRN 0.5 ATIVAN WITH NO HELP. NEXT 1 MG WAS USES WITH SOME HELP. PT WAS ABLE TO RELAX ENOUGH TO CLOSE HER EYES BUT NO SLEEP. TREATED FOR PAIN PER EMAR. STAFF WILL CONTINUE TO MONITOR.
[2020-12-24 14:33] LABS: PCO2 Arterial 34.4 mmHg (35-45); PO2 Arterial 65.9 mmHg (80-100); pH Blood Arterial 7.37 (7.35-7.45)
--- NOTE | 2020-12-24 16:35 | NUR ---
Pt on bipap anxious and sturggling with burden of ventilation. Pt opens eyes and attempts to answer questions. Asked her if I can call her hysabnd and put the phone up to her ear. She tried to speak with him a little. Spoke with the gently about her prognosis and the futility and unkindness of CPR. He was in agreement and stated they had recenlty changed her to a DNR. He had some questions about ivermectin. Gently explained the risk for immunocopromised patient and the potential damage to liver and kidneys and stated in upto date resource. reassured him of no agenda just judicious review of the patient. He demonstarted understanding. Called physician for some minimal narcotic to reduce air hunger and to hopefully help patient tolerate proning. pt having frquent urination and staff stuggling to maintain her sats with care. Gar catheter placed for strict I/O and for pt to maintain proning.
--- NOTE | 2020-12-24 17:04 | NUR ---
SHIFT SUMMARY 70Y F ADMITTED WITH COVID PNEUMONIA. PT WAS VERY ANXIOUS AND CONFUSED AT TIMES T/O DAY. PT CONT TO PULL AT FACE MASK AND COMPLETELY REMOVE BIBPAP OR DISCONNECT TUBING. MD AND RT INVOLVED T/O DAY WITH PTS CARE. PALLATIVE CARE INCOLVED AND ASSISTING WIHT PT CARE. PALLATIVE CARE RN WAS ABLE TO SPEAK WITH AND CHANGE PT STATUS TO DNR, CHART UPDATED. PLAN TO CONT TO OFFER PT RESPIRATORY SUPPORT AND COMFORT MEASURES INCLUDING MEDICATING PER EMAR FOR ANXIETY.
--- NOTE | 2020-12-24 17:04 | NUR ---
pt kps score 20%
[2020-12-24 18:05] LABS: Source, Urine Catheter
[2020-12-24 18:10] LABS: Appearance, Urine Clear (Clear); Bilirubin, Urine Neg (Neg); Blood, Urine Neg (Neg); Color, Urine Yellow (P-Yellow); Glucose Qualitative, Urine Neg (Neg); Ketones, Urine Neg (Neg); Leukocyte Esterase, Urine 1+ (Neg); Nitrite, Urine Neg (Neg); Protein, Urine Neg (Neg); Urobilinogen, Urine NORM (Normal)
[2020-12-24 18:19] LABS: Bacteria Rare /hpf; Red Blood Cells, Urine Rare /hpf (0-2); Squamous Epithelial Cells Rare /hpf (Few); White Blood Cells, Urine 0-2 /hpf (0-5)
--- NOTE | 2020-12-25 04:20 | NUR ---
SHIFT SUMMARY A/OX2, ANXIOUS T/O SHIFT. CONTINOUSLY ATTEMPTING TO REMOVE BIPAP WHILE DESATTING DOWN TO LOW 70S. ORAL SWABS GIVEN FREQUENTLY. MEDICATED WITH IV ATIVAN FOR ANXIETY. ABLE TO MAINTAIN SATS ABOVE [address]. VALDEZ PATENT AND DRAINING. BED IN LOWEST POSITION WITH CALL LIGHT IN REACH. WILL CONTINUE TO MONITOR AND REPORT TO ONCOMING RN.
[2020-12-25 07:38] LABS: BASOPHILS ABSOLUTE AUTO 0.03 K/mm3 (0.00-0.23); BASOPHILS PERCENT AUTO 0 % (0-2); EOSINOPHILS ABSOLUTE AUTO 0.01 K/mm3 (0.00-0.68); EOSINOPHILS PERCENT AUTO 0 % (0-6); Hematocrit 38.1 % (33.0-51.0); Hemoglobin 12.2 g/dL (11.5-16.0); IMMATURE GRAN ABSOLUTE AUTO 0.44 K/mm3 (0.00-0.10); IMMATURE GRAN PERCENT AUTO 4 % (0-1); LYMPHOCYTES ABSOLUTE AUTO 0.35 K/mm3 (0.84-5.20); LYMPHOCYTES PERCENT AUTO 3 % (21-46); MONOCYTES ABSOLUTE AUTO 0.34 K/mm3 (0.16-1.47); MONOCYTES PERCENT AUTO 3 % (4-13); Mean Corpuscular HGB 26.4 pg (26.0-34.0); Mean Corpuscular Volume 83 fL (80-100); Mean Platelet Volume 10.3 fL (9.1-12.4); NEUTROPHILS ABSOLUTE AUTO 9.09 K/mm3 (1.96-9.15); NEUTROPHILS PERCENT AUTO 89 % (41-73); Platelet Count 361 K/mm3 (150-400); RDW Coefficient Variation 14.7 % (11.7-14.2); RDW Standard Deviation 44.1 fL (35.1-46.3); Red Blood Cell Count 4.62 M/mm3 (3.80-5.20); White Blood Cell Count 10.26 K/mm3 (4.00-11.30)
[2020-12-25 07:54] LABS: Albumin, Blood 2.3 g/dL (3.4-5.0); Anion Gap 5 mmol/L (6-16); Blood Urea Nitrogen 63 mg/dL (8-24); Bun/Creatinine Ratio 48.8 (12.0-20.0); CO2, Blood 21 mmol/L (21-32); Chloride, Blood 112 mmol/L (98-108); Creatinine, Blood 1.29 mg/dL (0.40-1.00); Glomerular Filtration Rate 41 (60-); Glucose, Blood 184 mg/dL (70-99); Magnesium, Blood 2.1 mg/dL (1.6-2.4); Phosphorus, Blood 3.9 mg/dL (2.5-4.9); Potassium, Blood 5.3 mmol/L (3.5-5.5); Sodium, Blood 138 mmol/L (136-145)
--- NOTE | 2020-12-25 12:08 | NUR ---
FAMILY REQUESTED PT REQUESTED TO BE TAKEN OFF BIPAP. REVIEWED PT'S RESPIRATORY STATUS AND NEED FOR BIPAP, INFORMED PT THAT SHE WOULD NOT BE ABLE TO BREATH WITHOUT BIPAP. PT VERBALIZED INDERSTANDING AND CONFIRMS SHE WISHES TO BE TAKEN OFF BIPAP. RN ASKED PT IF SHE WOULD LIKE HER TO COME IN TO TO SEE HER FIRST AND SHE AGREED. SHE AGREES TO WAIT UNTIL IS A BEDSIDE. PALLATIVE CARE RN, DANNIELLE, INFORMED AND IS CALLING .
--- NOTE | 2020-12-25 12:42 | NUR ---
Conversation facilitated with the spouse (Rip) of the principal (Kristi) regarding the ongoing use of non-invasive airway support. Kristi has been requesting the removal of her BIPAP mask and expressing a preference to discontinue life sustaining treatments, and allow natural . I have invited Rip to come in and discuss this possibility directly with his . I gently but candidly explained to him that because she possesses testamentary capacity, this is ultimately her decision, but that the two of them should coverse about the advantages and disadvantages of this approach face to face as oppossed to telephonically. Rip was altogether eager to provide such support and attention, and will be arriving at the hospital shortly to do so. I will remain present as desired to assist with questions and offer directional guidance if needed or preferred. Thank you for this consult. Casper Steve ThD
--- NOTE | 2020-12-25 12:42 | NUR ---
Spiritual care visit conducted. Upon receiving a request for prayer by the patient from her RN, I visit patient. Patient is sitting up in bed and groggy but opens her eyes to see who I am. I ask patient how she is doing and she shakes her head "no." I ask her what that means and she does not reply. I ask her if I could say a prayer for her and she nods her head affirmingly. Patient voices her thanks after the prayer and then closes her eyes. I let her rest. I will continue to remain available to patietnt and family.
--- NOTE | 2020-12-25 13:52 | NUR ---
Update: The principles and I met with Kristi and discussed her plan of care. Patient remains DNR / DNI, but with her husbands calming and hopeful outlook is now agreeable to complying with non-invasive airway support. Per Dr Meraz, I explained that Nicole chest X-Rays show some negative decline attributable to a worsening pneumonia. The patient verbalized consent to a course of antibiotics for prophylactic benefit. The is theologically optimistic about a potential recovery, but is also realistic that this may not be medically feasible. I provided encouragement, reinforced a balanced approach, and offered audible intercession for consolation and the inducement of peace and courage. Rip and Kristi expressed gratitude and showed signs of emotional palliation. Thank you for this consult. Casper Steve ThD
--- NOTE | 2020-12-25 15:35 | NUR ---
kenna left nuring in to turn pt and to try to prone her. pt had large clot and bleeding from nose. pt more fatigued and pale. called just got home he cannot take coming back in . wants updates. pt kps 20 to 15%.
--- NOTE | 2020-12-25 17:31 | NUR ---
SHIFT SUMMARY PT REMAINS ON BIPAP AT 90%. SHE IS SEEMS LESS ANXIOUS TODAY BUT DOES CONTINUE TO PULL AT HER MASK AND FIDGIT WITH IT. PT DID SEEM TO BE ASPIRATING WITH FLUIDS AND PO MEDS. INFORMED AND PT CHANGED TO NPO STATUS. SHE DOES FREQUENTLY REQUEST DRINKS, RN EXPLAINED ASP RISK TO PT AND SHE VERBALIZES UNDERSTANDING BUT FORGETS, FREQUENT ORAL CARE PROVIDED DURING DAY. WAS ABLE TO GET PT IN PRONE POSITION WITH RT TODAY FOR A FEW HOURS. CAME IN TO ASSESS PT AND SHE WAS CALLING OUT FOR HELP AND FOUND TO HAVE A NOSE BLEED PARTIALLY CONTAINED IN THE BIPAP MASK. TURNED PT BACK TO HER BACK, PT NOSE BLEED W/ LARGE, LONG MUCAS BLOOD CLOTS. PT DID BLOW HER NOSE AND APPEARED TO DISLODGE ANOTHER CLOT CAUSING BLOOD TO SPRAY OUT OF HER NOSE. PRESSURE APPLIED TO NOSE AND BLEEDING SLOWED DOWN/STOPPED. PT O2 SATS DROPPING TO 60'S DURING THIS EPISODE WHILE MASK OFF. INFORMED PT WE NEEDED TO PUT HER MASK BACK ON AND SHE AGREED. SHORTLY AFTER REAPPLYING BIPAP MASK PT WAS FOUND TO HAVE SMALL AMOUNTS OF BLOOD DRIPING FROM TEAR DUCTS OF BOTH EYES. MD INFORMED AND INFORMED OF INCIDENT AND HE RETURNED TO BEDSIDE TO COMFORT PT.
--- NOTE | 2020-12-26 05:28 | NUR ---
shift summary Pt placed on comfort care this shift after refusing Bipap and continuing nose bleeds, pt unable to maintain o2 sats with Airvo in place, spouse came in to stay at bedside t/o the night. pt appears to be resting comfortably at this time, will cont to monitor until report given to day rn.
--- NOTE | 2020-12-26 14:29 | NUR ---
pt resting not labored at bedside.
--- NOTE | 2020-12-26 16:20 | NUR ---
Shift Summary AO to self and , minimal repositioning per 's request d/t chronic back issues. Patient mostly placed on R side. Continues to pull off NRB frequently, mostly on RA. Comfort care order in place. Medicated for pain and anxiety per EMAR with good effect. Gar patent and draining. Minimal verbal response from patient, at bedside throughout shift.
--- NOTE | 2020-12-27 05:11 | NUR ---
Pt on comfort care. at bedside, and call RN appropriatly. Pt has prn meds to help with comfort.
--- NOTE | 2020-12-27 17:14 | NUR ---
PT AT 16:25. DR. MILLER, CHARGE NURSE, PALLIATIVE CARE, AND NURSING FACILITY MECHANIC NOTIFIED. WAS AWAY FROM THE ROOM, PALLIATIVE CARE WAITING FOR HIM AT THE ROOM.
== END 2020-12-27 16:25 | DRG 177 ==
LOC: ER 20:41 → ERHOLD 12-17 00:02 → MEDS 12-17 14:32
PROVIDERS: Emergency Medicine; Family Medicine; Internal Medicine; Nurse Practitioner Acute Care; ADMIT Internal Medicine
PROC: 3E0333Z Introduction of Anti-inflammatory into Peripheral Vein, Percutaneous Approach (ICD-10-PCS; principal; 2020-12-16)
PROC: 8E0ZXY6 Isolation (ICD-10-PCS; 2020-12-16)
PROC: XW033E5 Introduction of Remdesivir Anti-infective into Peripheral Vein, Percutaneous Approach, New Technology Group 5 (ICD-10-PCS; 2020-12-16)
PROC: 5A0945A Assistance with Respiratory Ventilation, 24-96 Consecutive Hours, High Flow/Velocity Cannula (ICD-10-PCS; 2020-12-19)
PROC: 5A09457 Assistance with Respiratory Ventilation, 24-96 Consecutive Hours, Continuous Positive Airway Pressure (ICD-10-PCS; 2020-12-24)
DX: U07.1 COVID-19 (principal); J12.82 Pneumonia due to coronavirus disease 2019; J96.01 Acute respiratory failure with hypoxia; G92 Toxic encephalopathy; J69.0 Pneumonitis due to inhalation of food and vomit; J15.9 Unspecified bacterial pneumonia; A08.39 Other viral enteritis; E87.1 Hypo-osmolality and hyponatremia; N39.0 Urinary tract infection, site not specified; N17.9 Acute kidney failure, unspecified; R04.0 Epistaxis; H11.30 Conjunctival hemorrhage, unspecified eye; Z66 Do not resuscitate; R45.1 Restlessness and agitation; Z51.5 Encounter for palliative care; Z96.612 Presence of left artificial shoulder joint; E86.0 Dehydration; E11.649 Type 2 diabetes mellitus with hypoglycemia without coma; K21.9 Gastro-esophageal reflux disease without esophagitis; E78.5 Hyperlipidemia, unspecified; M19.90 Unspecified osteoarthritis, unspecified site; G25.81 Restless legs syndrome; B96.1 Klebsiella pneumoniae [K. pneumoniae] as the cause of diseases classified elsewhere; I12.9 Hypertensive chronic kidney disease with stage 1 through stage 4 chronic kidney disease, or unspecified chronic kidney disease; J45.20 Mild intermittent asthma, uncomplicated; E88.09 Other disorders of plasma-protein metabolism, not elsewhere classified; F41.9 Anxiety disorder, unspecified; M1A.9XX0 Chronic gout, unspecified, without tophus (tophi); E11.22 Type 2 diabetes mellitus with diabetic chronic kidney disease; G89.29 Other chronic pain; M54.9 Dorsalgia, unspecified; E11.40 Type 2 diabetes mellitus with diabetic neuropathy, unspecified; E66.01 Morbid (severe) obesity due to excess calories; N18.30 Chronic kidney disease, stage 3 unspecified; Z88.5 Allergy status to narcotic agent; Z88.0 Allergy status to penicillin; Z88.8 Allergy status to other drugs, medicaments and biological substances; Z91.038 Other insect allergy status; Z85.3 Personal history of malignant neoplasm of breast; Z98.890 Other specified postprocedural states; Z90.49 Acquired absence of other specified parts of digestive tract; Z95.828 Presence of other vascular implants and grafts; Z90.5 Acquired absence of kidney; Z79.84 Long term (current) use of oral hypoglycemic drugs; Z79.899 Other long term (current) drug therapy; Z79.82 Long term (current) use of aspirin; Z68.39 Body mass index [BMI] 39.0-39.9, adult
CPT/HCPCS: 36415; 36600; 71045; 80048; 80053; 80069; 81001; 82550; 82803; 82947; 83735; 83880; 84100; 84145; 84443; 84484; 85025; 85027; 85610; 86140; 87077; 87086; 87186; 93005; 93010; 94660; 94762; 96374; 97110; 97162; 97530; 99285-25; A9270; J1100; J1170; J1642; J1650; J1956; J2060; J2543; J3010; J7030; J7042; J7050